=== PATIENT | male | born 1935 | race Caucasian/White ===

== ENCOUNTER 2021-01-04 07:41 | Day surgery (SDC) | payer OTHER | END 2021-01-04 13:45 | disposition home or self-care (01) | LOC: AMB-ENDOS 07:41 → CIR.AMB 13:45 → AMB-ENDOS 13:45 | PROVIDERS: ATTEND Surgery | DX: D12.3 Benign neoplasm of transverse colon (principal); K64.4 Residual hemorrhoidal skin tags; Z20.822 Contact with and (suspected) exposure to COVID-19 ==